=== PATIENT | female | born 1985 | race American Indian/Alaskan Native ===

== ENCOUNTER 2018-01-20 18:05 | Emergency (ER) | payer SELFPAY ==
--- NOTE | 2018-01-20 18:33 | EDM.PDOC ---
ED HPI GENERAL MEDICAL PROBLEM - General Chief Complaint: Drug or Alcohol Abuse Time Seen by Provider: 01/20/18 18:19 Source of Information: Reports: Patient History Limitations: Reports: Intoxication - History of Present Illness INITIAL COMMENTS - FREE TEXT/NARRATIVE: Patient is brought into the emergency department via EMS. They were called to her residence facility for patient who had cut herself on both wrists. patient is uncooperative and does not provide much information regarding her history other than she drink a bottle of tequila and a lot of Budweiser. She also states that she injected meth approximately 48 hours ago. She could not remember how much she ingested. Pt has not been cooperative with staff and not truthful with answers. Pt states she is not suicidal but does think of hurting herself often. Police officers are present Onset: Sudden, Gradual - Related Data Allergies Allergy/AdvReac Type Severity Reaction Status Date / Time Unable to Assess Allergy Unverified 01/20/18 18:19 Home Meds: Home Meds . [Unable to Verify Home Med List] 01/20/18 [History] ED ROS GENERAL - Review of Systems Review Of Systems: Unable To Obtain ED EXAM, GENERAL - Physical Exam Exam: See Below Exam Limited By: Uncooperative (intoxicated) General Appearance: Anxious Head: Atraumatic, Normocephalic Neck: Normal Inspection Respiratory/Chest: No Respiratory Distress Cardiovascular: Normal Peripheral Pulses Psychiatric: Anxious Skin Exam: Warm, Dry, Other (bilateral forearm superficial fresh cut wounds. ) Course - Vital Signs Last Recorded V/S: Last Vital Signs Temp Pulse 80 01/20/18 18:19 Resp 16 01/20/18 18:19 BP Pulse Ox Departure - Departure Time of Disposition: 17:52 Disposition: DC/Tfer to Psych Hosp/Unit 65 Condition: Good Clinical Impression: Drug dependence, Alcohol abuse - Discharge Information Referrals: PCP,Unknown [Primary Care Provider] - Forms: ED Department Discharge, Interfacility Transfer EMTALA - Assessment/Plan Plan: 1. Cover superficial wounds with steri strip and gauze dressing 2. Attempt to obtain labs- however pt is not cooperative 3. contact made with [facility] who have been willing to assume care 4. X-ray of finger and knee for the pt states pain in both areas.
== END 2018-01-20 19:24 ==
LOC: VM.ED 18:05
DX: S51.812A Laceration without foreign body of left forearm, initial encounter (principal); S51.811A Laceration without foreign body of right forearm, initial encounter; F10.229 Alcohol dependence with intoxication, unspecified; X78.9XXA Intentional self-harm by unspecified sharp object, initial encounter
CPT/HCPCS: 73140-F9; 73560-LT; 99284-GF; 99285

== ENCOUNTER 2022-06-24 00:12 | Emergency (ER) | payer MEDICAID ==
[2022-06-24] MEDS: Ketorolac 15 MG/ML SDV IVPUSH ONE (00:44)
[2022-06-24] MEDS: Morphine 4 MG/ML Syringe IVPUSH ONE (00:45)
[2022-06-24 01:14] LABS: CHLORIDE,CL 103 mmol/L (98-107); SODIUM,NA 138 mmol/L (136-145)
[2022-06-24 01:15] LABS: ANION GAP 8.9 mmol/L (5-15); ESTIMATED GFR 116 mL/min (>=60)
[2022-06-24] MEDS: methylPREDNISolone Sodium Succinate 125 MG/2 ML SDV IV ONE (02:30)
[2022-06-24] MEDS: Take Home: Naproxen 500 MG Tab, 4 Tab Pack PO ONE (02:48)
== END 2022-06-24 02:59 ==
LOC: VM.ED 00:12
DX: R07.89 Other chest pain (principal)
CPT/HCPCS: 36415; 71045; 80053; 83735; 84484; 85025; 85379; 85610; 85730; 86140; 93010; 96374; 96375; 99284; 99285-25; A9270-GY; J1885; J2270; J2930

== ENCOUNTER 2024-04-30 22:48 | Emergency (ER) | payer SELFPAY ==
[2024-04-30 23:10] LABS: BASOPHILS PERCENT AUTO 0.3 % (0.2-1.2); EOSINOPHILS ABSOLUTE AUTO 0.1 x10^3/uL (0.0-0.5); EOSINOPHILS PERCENT AUTO 1.5 % (0.0-4.0); HEMATOCRIT 28.4 % (33.0-47.0); HEMOGLOBIN 9.2 g/dL (12.0-16.0); IMMATURE GRAN ABSOLUTE AUTO 0.01 x10^3/uL (0.00-0.07); LYMPHOCYTES ABSOLUTE AUTO 1.4 x10^3/uL (1.0-4.8); LYMPHOCYTES PERCENT AUTO 22.5 % (25.0-50.0); MEAN CORPUSCULAR HEMOGLOBIN 24.9 pg (26.0-32.0); MEAN CORPUSCULAR HGB CONC 32.4 g/dL (32.0-36.0); MONOCYTES ABSOLUTE AUTO 0.4 x10^3/uL (0.0-0.8); MONOCYTES PERCENT AUTO 5.8 % (2.0-11.0); NEUTROPHILS ABSOLUTE AUTO 4.3 x10^3/uL (1.8-7.7); NEUTROPHILS PERCENT AUTO 69.7 % (50.0-80.0); PLATELET COUNT,PLT 300 x10^3/uL (130-400); RED BLOOD CELL COUNT 3.69 x10^6/uL (4.00-5.50); WHITE BLOOD CELL COUNT,WBC 6.2 x10^3/uL (4.0-10.0)
[2024-04-30 23:25] LABS: BLOOD UREA NITROGEN,BUN 12 mg/dL (7-18); CALCIUM 8.8 mg/dL (8.5-10.1); CARBON DIOXIDE,CO2 24 mmol/L (21-32); CHLORIDE,CL 103 mmol/L (98-107); CREATININE 0.9 mg/dL (0.55-1.02); GLUCOSE RANDOM 121 mg/dL (70-99); POTASSIUM,K 3.3 mmol/L (3.5-5.1); SODIUM,NA 140 mmol/L (136-145)
[2024-04-30 23:29] LABS: ANION GAP 16.3 mmol/L (5-15); ESTIMATED GFR 84 mL/min (>=60)
[2024-04-30 23:35] LABS: ETHANOL BLOOD MEDICAL 0 mg/dL (0-3)
[2024-04-30] MEDS: Cephalexin 500 MG Cap PO ONE (23:35)
== END 2024-04-30 23:48 | disposition home or self-care (01) ==
LOC: VM.ED 22:48
DX: L03.115 Cellulitis of right lower limb (principal)
CPT/HCPCS: 36415; 80048; 80307; 85025; 99283; A9270-GY

== ENCOUNTER 2024-05-09 02:02 | Emergency (ER) | payer SELFPAY ==
[2024-05-09 02:36] LABS: BASOPHILS PERCENT AUTO 0.2 % (0.2-1.2); EOSINOPHILS ABSOLUTE AUTO 0.1 x10^3/uL (0.0-0.5); EOSINOPHILS PERCENT AUTO 1.5 % (0.0-4.0); HEMATOCRIT 27.9 % (33.0-47.0); IMMATURE GRAN ABSOLUTE AUTO 0.01 x10^3/uL (0.00-0.07); LYMPHOCYTES ABSOLUTE AUTO 2.1 x10^3/uL (1.0-4.8); LYMPHOCYTES PERCENT AUTO 38.8 % (25.0-50.0); MEAN CORPUSCULAR HGB CONC 32.3 g/dL (32.0-36.0); MEAN CORPUSCULAR VOLUME 77.5 fL (78.0-93.0); MONOCYTES ABSOLUTE AUTO 0.3 x10^3/uL (0.0-0.8); MONOCYTES PERCENT AUTO 5.8 % (2.0-11.0); NEUTROPHILS ABSOLUTE AUTO 2.9 x10^3/uL (1.8-7.7); NEUTROPHILS PERCENT AUTO 53.5 % (50.0-80.0); PLATELET COUNT,PLT 328 x10^3/uL (130-400); WHITE BLOOD CELL COUNT,WBC 5.4 x10^3/uL (4.0-10.0)
[2024-05-09 02:49] LABS: BLOOD UREA NITROGEN,BUN 17 mg/dL (7-18); CALCIUM 9.2 mg/dL (8.5-10.1); CARBON DIOXIDE,CO2 27 mmol/L (21-32); CHLORIDE,CL 103 mmol/L (98-107); GLUCOSE RANDOM 107 mg/dL (70-99); SODIUM,NA 142 mmol/L (136-145)
[2024-05-09 02:51] LABS: ESTIMATED GFR 74 mL/min (>=60)
[2024-05-09] MEDS: Ketorolac 30 MG/ML SDV IM ONE (03:24)
== END 2024-05-09 03:32 | disposition home or self-care (01) ==
LOC: VM.ED 02:02
DX: M79.604 Pain in right leg (principal); M79.605 Pain in left leg
CPT/HCPCS: 36415; 80048; 85025; 96372; 99283; J1885

== ENCOUNTER 2025-08-31 07:25 | Emergency (ER) | payer MEDICAID ==
[2025-08-31] MEDS: Diphtheria,Pertussis(Acell),Tetanus Vaccine 0.5 ML Syringe IM ONE (08:10)
== END 2025-08-31 09:07 | disposition home or self-care (01) ==
LOC: VM.ED 07:25
DX: S83.91XA Sprain of unspecified site of right knee, initial encounter (principal); S80.811A Abrasion, right lower leg, initial encounter; Z23 Encounter for immunization; W19.XXXA Unspecified fall, initial encounter; Y93.01 Activity, walking, marching and hiking
CPT/HCPCS: 73562-RT; 73590-RT; 90471; 90715; 99283; 99283-25